=== PATIENT | female | born 1980 | race Caucasian/White ===

== ENCOUNTER 2017-06-15 16:47 | Emergency (ER) | payer BC ==
[2017-06-15] MEDS ORDERED: NS 0.9% 1000 ML* 1,000 ML IV ONE (18:06)
[2017-06-15] MEDS ORDERED: Metoclopramide IV* 5 MG/ML 2 ML VIAL IV ONE (18:07)
[2017-06-15] MEDS ORDERED: Ondansetron INJ* 2 MG/ML VIAL IV ONE (18:16)
--- NOTE | 2017-06-15 18:25 | ED ---
- HPI Summary HPI Summary: Patient presents to the ED with CC of N/V at 5 weeks . She states she began vomiting yesterday so took an at home test this afternoon. She called her OBGYN who suggested she come here when her at home Reglan medication was not helping. She has vomited over 10 times. Denies diarrhea and constipation. Endorses MCCLAIN. Denies chest pain, SOB or other back pain. Denies vaginal discharge or symptoms. - History of Current Complaint Chief Complaint: EDNauseaVomitDiarrh Stated Complaint: 5 WEEKS PREG/DEHYDRATED/SENT BY CLINICAL NURSE OCCUPATIONAL MEDICINE Time Seen by Provider: 06/15/17 18:05 Hx Obtained From: Patient Chief Complaint: Concern for Embryonic Dem, Concern for Demise, Vaginal Bleeding Onset/Duration: Started Hours Ago Timing: Constant Severity: Moderate Current Severity: Moderate Pain Intensity: 0 Associated Signs and Symptoms: Positive: Negative - Assessment Hx Now: Yes SAB: 1 IEA: 0 History of Ectopic : No Hx Pelvic Inflammatory Disease: No Vaginal Bleeding Amount: None Contraction Intensity: No Contractions Contraction Pattern: No Contractions Hx Hysterectomy: No History of STI/STD: No - Risk Factors Ectopic Risk Factor: Maternal Age ^ 30 Ovarian Torsion Risk Factor: Reproductive Age - Additional Pertinent History Referred By: PCP - OBGYN Maternal Blood Type and Rh: O Positive - Allergies/Home Medications Allergies/Adverse Reactions: Allergies Allergy/AdvReac Type Severity Reaction Status Date / Time Cephalexin [From Keflex] Allergy Mild Hives Verified 06/01/15 09:41 PMH/Surg Hx/FS Hx/Imm Hx Previously Healthy: Yes Endocrine/Hematology History: Denies: Hx Anticoagulant Therapy, Hx Diabetes, Hx Thyroid Disease Cardiovascular History: Denies: Hx Hypertension, Hx Pacemaker/ICD Respiratory History: Denies: Hx Asthma, Hx Chronic Obstructive Pulmonary Disease (COPD) History: Denies: Hx Renal Disease Neurological History: Denies: Hx Dementia, Hx Seizures Psychiatric History: Reports: Hx Anxiety, Hx Depression Denies: Hx Substance Abuse - Immunization History Hx Pertussis Vaccination: No Immunizations Up to Date: Unable to Obtain/Confirm Infectious Disease History: No Infectious Disease History: Denies: Hx Hepatitis, Hx Human Immunodeficiency Virus (HIV), Traveled Outside the [place] in Last 30 Days - Social History Occupation: Employed Full-time Lives: With Family Alcohol Use: Occasionally Alcohol Amount: none while Hx Substance Use: No Substance Use Type: Reports: None Hx Tobacco Use: No Smoking Status (MU): Former Smoker Review of Systems Constitutional: Negative Eyes: Negative Cardiovascular: Negative Respiratory: Negative Positive: Vomiting, Nausea Positive: no symptoms reported, see HPI Musculoskeletal: Negative Skin: Negative Neurological: Negative Positive: Anxious All Other Systems Reviewed And Are Negative: Yes Physical Exam - Physical Exam Triage Information Reviewed: Yes Vital Signs Reviewed: Yes Appearance: Positive: Well-Appearing, Well-Nourished Skin: Positive: Warm, Skin Color Reflects Adequate Perfusion Head/Face: Positive: Normal Head/Face Inspection Eyes: Positive: EOMI, LUIS, Conjunctiva Clear Neck: Positive: Supple, No Lymphadenopathy Respiratory/Lung Sounds: Positive: Clear to Auscultation, Breath Sounds Present Cardiovascular: Positive: Normal, RRR, Pulses are Symmetrical in both Upper and Lower Extremities Musculoskeletal: Positive: Normal, Strength/ROM Intact Neurological: Positive: Sensory/Motor Intact, Alert, Oriented to Person Place, Time Psychiatric: Positive: Normal Diagnostics - Vital Signs Vital Signs Temp Pulse Resp BP Pulse Ox 06/15/17 18:05 92 131/76 100 06/15/17 17:02 96.9 F 95 17 122/77 100 - Laboratory Result Diagrams: 06/15/17 18:11 06/15/17 18:11 Lab Statement: Any lab studies that have been ordered have been reviewed, and results considered in the medical decision making process. Course/Dx - Course Course Of Treatment: Patient presents to the ED with new and N/V. Sent here by OBGYN. During her course of treatment Beta HCG is checked and found to be >50,000. She is given zofran. Reglan at home without relief. She states the only medicatoin which helps is zofran. She is given 2 L fluids and denies any abdominal pain. She immeidatley feels improved after zofran. She is OK to be discharged home. Labs WNL. UA WNL. She is given a rx for zofran and encouraged to take her reglan at home first. - Differential Diagnosis/HQI/PQRI: Other: - N/V in - Diagnoses Provider Diagnoses: Nausea/vomiting in Discharge - Discharge Plan Condition: Stable Disposition: HOME Prescriptions: Ondansetron ODT TAB* [Zofran 4 MG Odt TAB*] 4 mg PO Q6H PRN #12 tab.odt MDD 4 PRN Reason: Nausea Patient Education Materials: (ED) Referrals: Heena Crane MD [Primary Care Provider] - Additional Instructions: Please follow up with your OBGYN within a week Continue to try to take Reglan for any nausea Any nausea not well treated with Reglan, please take Zofran as needed for nausea Eat and drink bland diet - crackers and soup Try to get enough to eat and drink
[2017-06-15 18:27] LABS: Hematocrit 40 % (35-47); Hemoglobin 14.2 g/dl (12.0-16.0); Mean Corpuscular HGB Conc 35 g/dl (31-36); Mean Corpuscular Hemoglobin 33 pg (27-31); Mean Corpuscular Volume 95 fL (80-97); Mean Platelet Volume 7 um3 (7.4-10.4); Red Blood Count 4.25 10^6/ul (4.0-5.4); Red Cell Distribution Width 12 % (10.5-15); White Blood Count 12.1 10^3/ul (3.5-10.8)
[2017-06-15 18:42] LABS: Albumin 4.3 g/dL (3.2-5.2); BUN/Creatinine Ratio 14.3 (8-20); Calcium 9.4 mg/dL (8.6-10.3); EGFR African American 110.4 (>60); EGFR Non-African American 85.8 (>60); Globulin 3.2 g/dL (2-4); Potassium 3.4 mmol/L (3.5-5.0); Total Bilirubin 0.8 mg/dL (0.2-1.0); Total Protein 7.5 g/dL (6.4-8.9)
[2017-06-15 20:35] VITALS: BP 120/69
== END 2017-06-15 20:39 | disposition home or self-care (01) ==
LOC: ED 16:47
DX: O21.0 Mild hyperemesis gravidarum (principal); Z3A.01 Less than 8 weeks gestation of pregnancy; F41.9 Anxiety disorder, unspecified; F32.9 Major depressive disorder, single episode, unspecified; Z88.1 Allergy status to other antibiotic agents; Z87.891 Personal history of nicotine dependence
CPT/HCPCS: 36415; 80053; 84702; 85025; 96361; 96374; 96375; 99283; J2405

== ENCOUNTER 2018-02-02 09:57 | Inpatient (IN) | payer BC ==
[2018-02-02] MEDS ORDERED: Dinoprostone* 10 MG VAG.SUPP VAGINAL ONE (10:56)
--- NOTE | 2018-02-02 11:32 | HP ---
General Information - General Information Maternal Age: 37 Grav: 5 Para: 3 SAB: 1 IEA: 0 Estimated Due Date: 02/09/18 Determined By: LMP Gestational Age in Weeks and Days: 39 Weeks and 0 Days Maternal Blood Type and Rh: O Positive - Results this Serology/RPR Result: Non-Reactive Rubella Result: Immune HBsAg Result: Negative HIV Result: Negative GBS Culture Result: Negative Past Medical History Delivery History: Hx Uncomplicated Vaginal Delivery Delivery History Comment: 3 X SVB 2007, 2013, 2014 Pertinent Past Medical History: See Records Past Medical History Comment: Lyme disease 2011, 2013 arthritis Depression/anxiety Headaches Hx GDM previous pregnancies Pertinent Past Surgical History: See Records Pertinent Family History: See Records Family History Comment: HTN, stroke - Antepartal Records Antepartal Records: Reviewed, Complicated by: - GDM Review of Systems Constitutional: Uncomfortable CV Complaint: No Respiratory: Shortness of Breath: No Gastrointestinal: Normal Bowel Movement Genitourinary: No Dysuria, No Bleeding, No Leaking Fluid Musculoskeletal: Contractions Neurological: No Headache Movement: Normal Exam Allergies/Adverse Reactions: Allergies MS Cephalexin [From Keflex] Allergy (Mild, Verified 06/01/15 09:41) Hives BP 123/94 T 98.9 P 89 RR 20 O2 100 - Measurements Height: 5 ft 5 in Weight: 159 lb Weight in lbs: 159 Body Mass Index (BMI): 26.4 Pre- Weight: 128 lb Weight Gained This : 31 lbs and 0 ozs - Exam Abdomen: No Upper Quadrant Pain Breast: Breast Exam Deferred CVA: No CVA Tenderness Extremities: No Edema Heart: Normal Rhythm/Heart Sounds HEENT: No Significant Findings Lungs: Clear Bilaterally Rectal: Rectal Exam Deferred Reflexes: DTR 2+ Thyroid: - - WNL at entery to care - Abdominal Exam Abdomen Exam: Non-Tender - Ultrasound/Biophysical Profile Ultrasound Status: Not Done Targeted Exam Findings See L&D Outpatient Visit Provider Note for Findings: Yes Estimated Weight: EFW 8.5lb Cervical Exam: Fingertip Effacement: 80% Station: Ballotable Presenting Part: Vertex Membrane Status: Intact Bleeding/Discharge: None EFM Findings - External Monitor Findings Baseline Heart Rate: 135 External Monitor Findings: Accelerations Present, No Pattern of Variable or Late Decelerations, Variability Moderate Contractions: Irregular, Moderate, < 45 Seconds Contraction Frequency: Q 5-15 Assessment/Plan - Reason for Visit Reason for Visit: IUP @ 39+0 weeks gestation for induction of labor. GDM. No evidence metabolic acidemia. IBOW. - Obstetrical Risk Factors Obstetrical Risk Factors: Gestational Diabetes - Plan Plan: Induction, Cervical Ripening - Date/Time of Admission Date of Admission: 02/02/18 Time of Admission: 11:03
[2018-02-02] MEDS ORDERED: Oxytocin in LR* 20 UNITS/1,000 ML BAG IVPB SCH (21:00)
[2018-02-02 21:11] LABS: ABS Basophils 0.1 10^3/ul (0-0.2); ABS Eosinophils 0.1 10^3/ul (0-0.6); ABS Lymphocytes 2.4 10^3/ul (1.0-4.8); ABS Monocytes 0.8 10^3/ul (0-0.8); ABS Neutrophils 5.5 10^3/ul (1.5-7.7); ABS Nucleated RBC 0 10^3/ul; Eosinophil % 1.6 % (0-6); Hematocrit 33 % (35-47); Hemoglobin 11.4 g/dl (12.0-16.0); Lymphocyte % 27.2 % (25-47); Mean Corpuscular HGB Conc 34 g/dl (31-36); Mean Corpuscular Hemoglobin 30 pg (27-31); Mean Corpuscular Volume 89 fL (80-97); Nucleated Red Blood Cells % 0.4; Platelet Count 247 10^3/ul (150-450); Red Blood Count 3.76 10^6/ul (4.0-5.4); Red Cell Distribution Width 15 % (10.5-15)
[2018-02-02] MEDS ORDERED: OBEPIDURAL* 250 ML EPIDURAL ONE (22:59)
[2018-02-02] MEDS ORDERED: EPHEDrine (Pressors)* 50 MG/ML VIAL IV PUSH PRN ×2 (23:31)
[2018-02-02] MEDS ORDERED: Famotidine TAB* 20 MG PO PRN (23:31)
[2018-02-02] MEDS ORDERED: Sodium Citrate/Citric Acid* 15 ML UDC PO PRN (23:31)
[2018-02-02] MEDS ORDERED: Phenylephrine IV* 40 MCG/ML 10 ML SYRINGE IV PUSH PRN ×2 (23:31)
[2018-02-02] MEDS ORDERED: OBEPIDURAL* 250 ML EPIDURAL SCH (23:45)
[2018-02-03] MEDS ORDERED: Misoprostol TAB* 200 MCG PR ONE (02:31)
[2018-02-03] MEDS ORDERED: Glycerin ADULT SUPP PR PRN (02:31)
[2018-02-03] MEDS ORDERED: Tetan/Diph/Pertus SYR(Tdap)* 0.5 ML SYR(BOOSTRIX) use SYR IM ONE (02:31)
[2018-02-03] MEDS ORDERED: Witch Hazel PAD* JAR TOPICAL PRN (02:31)
[2018-02-03] MEDS ORDERED: Acetaminophen TAB* 325 MG PO PRN (02:31)
[2018-02-03] MEDS ORDERED: Dibucaine 1% 28.35 GM TUBE PR PRN (02:31)
[2018-02-03] MEDS ORDERED: Oxytocin in LR* 20 UNITS/1,000 ML BAG IVPB SCH (03:00)
[2018-02-03] MEDS ORDERED: Misoprostol TAB* 200 MCG ONE (03:58)
[2018-02-03] MEDS: Ibuprofen TAB* 600 MG PO PRN ×3 (06:40→18:41)
[2018-02-03] MEDS: Docusate CAP* 100 MG PO SCH ×2 (08:40→14:50)
[2018-02-04] MEDS: Ibuprofen TAB* 600 MG PO PRN ×2 (00:31→06:02)
[2018-02-04 06:06] LABS: ABS Basophils 0.1 10^3/ul (0-0.2); ABS Eosinophils 0.3 10^3/ul (0-0.6); ABS Lymphocytes 2.4 10^3/ul (1.0-4.8); ABS Monocytes 0.7 10^3/ul (0-0.8); ABS Neutrophils 6.1 10^3/ul (1.5-7.7); ABS Nucleated RBC 0 10^3/ul; Eosinophil % 2.8 % (0-6); Hematocrit 29 % (35-47); Hemoglobin 9.9 g/dl (12.0-16.0); Lymphocyte % 25.3 % (25-47); Mean Corpuscular HGB Conc 34 g/dl (31-36); Mean Corpuscular Hemoglobin 30 pg (27-31); Mean Corpuscular Volume 88 fL (80-97); Mean Platelet Volume 8.1 um3 (7.4-10.4); Nucleated Red Blood Cells % 0.1; Platelet Count 214 10^3/ul (150-450); Red Blood Count 3.28 10^6/ul (4.0-5.4); Red Cell Distribution Width 14 % (10.5-15); White Blood Count 9.6 10^3/ul (3.5-10.8)
[2018-02-04 08:04] VITALS: BP 120/73
[2018-02-04] MEDS ORDERED: Ferrous Gluconate TAB* 324 MG TAB PO SCH (09:00)
[2018-02-04] MEDS: Docusate CAP* 100 MG PO SCH (09:45)
== END 2018-02-04 11:07 | disposition home or self-care (01) | DRG 560 ==
LOC: MCHOBOUT 09:57 → MCHOB 11:03
PROVIDERS: ADMIT Midwife; ATTEND Midwife
PROC: 10E0XZZ Delivery of Products of Conception, External Approach (ICD-10-PCS; principal; 2018-02-03)
PROC: 3E033VJ Introduction of Other Hormone into Peripheral Vein, Percutaneous Approach (ICD-10-PCS; 2018-02-03)
DX: O24.429 Gestational diabetes mellitus in childbirth, unspecified control (principal); O99.344 Other mental disorders complicating childbirth; F32.9 Major depressive disorder, single episode, unspecified; O32.2XX0 Maternal care for transverse and oblique lie, not applicable or unspecified; O90.81 Anemia of the puerperium; D64.9 Anemia, unspecified; Z3A.39 39 weeks gestation of pregnancy; Z37.0 Single live birth
CPT/HCPCS: 36415; 85025; 86850; 86900; 86901; 90715; A9270-GY